=== PATIENT | female | born 1940 | race Caucasian/White ===

== ENCOUNTER 2023-01-05 01:51 | Inpatient (IN) | payer MEDICARE, BC ==
[~2023-01-05] VITALS: Ht 165.1 cm; Wt 76.2 kg
[2023-01-05] MEDS ORDERED: ACETAMINOPHEN 325 MG TABLET PO PRN (04:30)
[2023-01-05] MEDS ORDERED: MAGNESIUM HYDROXIDE 30 ML UDC PO PRN (04:30)
[2023-01-05] MEDS ORDERED: BLOOD SUGAR DIAGNOSTIC 1 EACH STRIP IN ONE (04:30)
[2023-01-05] MEDS ORDERED: MAG HYDROX/AL HYDROX/SIMETH 30 ML UDC PO PRN (04:30)
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
--- NOTE | 2023-01-05 06:00 | NUR ---
RN note: Patient refused MRSA swab;offered 3x.Will endorse to next shift to try again.
--- NOTE | 2023-01-05 06:02 | NUR ---
RN note: Unable to get a hold of [facility] at [phone] to obtain the list of Patients medication;vaccination record and all other medical record.Will endorse to next shift for followup.
[2023-01-05] MEDS ORDERED: MELA5TAB PO (06:31)
[2023-01-05] MEDS ORDERED: QUET100T PO (06:31)
[2023-01-05] MEDS ORDERED: CHLO25TA2 PO (06:31)
[2023-01-05] MEDS ORDERED: FLUT1DIS IH (06:31)
[2023-01-05] MEDS ORDERED: LISI10TA29 PO (06:31)
[2023-01-05] MEDS ORDERED: DOCU-141 PO (06:31)
[2023-01-05] MEDS ORDERED: CHOL400T11 PO (06:31)
[2023-01-05] MEDS ORDERED: RISP0.5T5 PO (06:31)
[2023-01-05] MEDS ORDERED: ALBU18HF2 INH (06:31)
[2023-01-05] MEDS ORDERED: POLY17PO4 PO (06:31)
[2023-01-05] MEDS ORDERED: DONE10TA44 MT (06:31)
[2023-01-05 06:39] VITALS: BP 156/76
--- NOTE | 2023-01-05 06:45 | NUR ---
RN note: LAVELL Ya ,notified to reconcile home medication.
[2023-01-05 08:00] VITALS: BP 132/84
[2023-01-05] MEDS ORDERED: FLUTICASONE/SALMETEROL 1 DISK IH SCH (09:00)
[2023-01-05] MEDS ORDERED: Medication Not On Formulary EA (Chlorthalidone 25 MG) MT SCH (09:00)
[2023-01-05] MEDS ORDERED: POLYETHYLENE GLYCOL 3350 17 GM POWD.PACK PO SCH (09:00)
[2023-01-05] MEDS ORDERED: ALBUTEROL FS 2.5 MG/3 ML VIAL.NEB NEB PRN (09:00)
[2023-01-05] MEDS: DOCUSATE SODIUM 100 MG CAPSULE PO SCH (09:09)
[2023-01-05] MEDS: LISINOPRIL (10MG) 10 MG TABLET PO SCH (09:10)
[2023-01-05 09:39] LABS: CREATININE 1.4 mg/dL (0.6-1.3)
[2023-01-05 09:43] LABS: CHOLESTEROL 232 mg/dL (<200); HDL CHOLESTEROL 96 mg/dL (40-60); LDL 131 mg/dL (0-99); TRIGLYCERIDES 58 mg/dL (30-150)
--- NOTE | 2023-01-05 09:57 | NUR ---
AMANDA Initial Discharge Plan: Per records, pt resides at a [facility] located at [address] [place] [address]; . AMANDA contacted facility and spoke with Thomas ([phone]) from admissions who stated that they would need to re-assess the pt to see if pt is welcomed back. He stated to reach out to [facility] to do the re-assessment. AMANDA will contact pt's son Chace ([phone]) to gather further collateral and discuss treatment/discharge plan. AMANDA will work with the MD, family, and pt to help coordinate appropriate discharge. Addendum: 01/12/23 at 1546 by AMANDA HOFFMAN Correct address: Per records, pt resides at a [facility] located at [address] [place] [id number].
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
--- NOTE | 2023-01-05 10:05 | NUR ---
Treatment Plan: Pt refused to sign treatment plan and was unable to comprehend.
--- NOTE | 2023-01-05 11:31 | NUR ---
AMANDA Family Contact: SW contacted pt's son Chace ([phone]) and left a detailed voicemail of pt's admission. SW requested to discuss about treatment/discharge plan.
--- NOTE | 2023-01-05 12:07 | NUR ---
AMANDA Family Contact: AMANDA contacted pt's son Chace ([phone]) and discussed treatment/discharge plan. Chace stated that he is the DPOA and will send the document. He stated that he would want pt back to [facility] and to speak with Bambi ([phone]) upon dc. Son reported that she has been residing at the memory care unit for two years. She shared that she has been diagnosed with Alzheimers 5 years ago. He shared that this is her first episode. AMANDA shared information to Dr. Menjivar.
[2023-01-05] MEDS: LORAZEPAM 0.5 MG TABLET PO PRN (12:40)
--- NOTE | 2023-01-05 12:42 | NUR ---
RN-NOTES NOTED PATIENT VERY ANXIOUS,BANGING HER TABLE WITH BOTH HANDS REDIRECTED AND ATIVAN 0.5MG P.O GIVEN PRN ORDER. WILL CONT. MONITORING FOR SAFETY AND BEHAVIOR.
--- NOTE | 2023-01-05 12:55 | NUR ---
RN-NOTES PATIENT STILL IN THE DAY ROOM UP IN THE TANIA CHAIR, CALM,NO ACUTE DISTRESS NOTED.
[2023-01-05] MEDS: BUDESONIDE RESPULE INH 0.5 MG/2 ML AMPUL.NEB NEB SCH (15:00)
[2023-01-05 16:00] VITALS: BP 129/61
[2023-01-05] MEDS: MEMANTINE HCL 5 MG TABLET PO SCH (16:21)
--- NOTE | 2023-01-05 17:09 | NUR ---
RN-NOTES PATIENT IN THE DAY ROOM UP IN THE TANIA CHAIR,GUARDED, A/O X1 NO ACUTE DISTRESS NOTED.COMPLIANT WITH MEDICATIONS.NOTED PATIENT WITH AGITATION ,BANGING TABLES WITH BOTH HANDS. NEEDS FREQUENT REDIRECTION AND ORIENTATION.PATIENT NEEDS MODERATE ASSIST IN AMBULATION AND ADL'S. ALL NEEDS ATTENDED AND ANTICIPATED. WILL ENDORSE TO INCOMING NURSE FOR CONTINUITY OF CARE.
[2023-01-05 20:19] VITALS: BP 123/70
[2023-01-05] MEDS: DIVALPROEX SODIUM 250 MG TABLET.DR PO SCH (21:14)
[2023-01-05] MEDS: QUETIAPINE FUMARATE 25 MG TABLET PO SCH (21:14)
[2023-01-05] MEDS: ZOLPIDEM TARTRATE 5 MG TABLET PO PRN (21:17)
--- NOTE | 2023-01-05 21:27 | NUR ---
Pt c/o insomnia. Least restrictive measures ineffective. Ambien 5 mg po prn given as ordered. Will continue to monitor.
[2023-01-05] MEDS ORDERED: Medication Not On Formulary EA (Melatonin 5 MG) PO SCH (22:00)
--- NOTE | 2023-01-05 22:30 | NUR ---
Post 1 hr Ambien effective. Pt asleep in bed easy to arouse. Bed at low position and bed alarm on. Frequent visual check done for safety. Will continue to monitor. Will endorse to next shift.
[2023-01-05] MEDS: ALBUTEROL FS 2.5 MG/3 ML VIAL.NEB NEB SCH (22:43)
[2023-01-06] MEDS: ALBUTEROL FS 2.5 MG/3 ML VIAL.NEB NEB SCH ×4 (02:39→20:41)
[2023-01-06] MEDS: BUDESONIDE RESPULE INH 0.5 MG/2 ML AMPUL.NEB NEB SCH ×2 (07:05→14:53)
[2023-01-06 08:00] VITALS: BP 153/52
--- NOTE | 2023-01-06 08:25 | NUR ---
PATIENT WERE DEEP ASLEEP SO NO TX GIVEN. AEROGRAPHER AND RN NOTIFIED Addendum: 01/06/23 at 0826 by JAVIER GARNICA RT Amended: Links added.
[2023-01-06] MEDS: DONEPEZIL 5 MG TABLET PO SCH (09:47)
[2023-01-06] MEDS: MEMANTINE HCL 5 MG TABLET PO SCH ×2 (09:47→17:33)
[2023-01-06] MEDS: DOCUSATE SODIUM 100 MG CAPSULE PO SCH (09:47)
[2023-01-06] MEDS: DIVALPROEX SODIUM 250 MG TABLET.DR PO SCH ×2 (09:47→20:54)
[2023-01-06] MEDS: LISINOPRIL (10MG) 10 MG TABLET PO SCH (09:48)
[2023-01-06] MEDS ORDERED: LORA-259 PO (11:18)
[2023-01-06] MEDS ORDERED: BENZ200C53 PO (11:18)
[2023-01-06] MEDS ORDERED: LOPE2TAB25 PO (11:18)
[2023-01-06] MEDS ORDERED: GUAI200T5 PO (11:18)
[2023-01-06] MEDS ORDERED: QUET25TA PO (11:18)
[2023-01-06] MEDS ORDERED: CHOL100043 PO (11:18)
[2023-01-06] MEDS ORDERED: ALBU18HF2 IH (11:18)
[2023-01-06] MEDS ORDERED: RISP0.2515 PO (11:18)
[2023-01-06] MEDS ORDERED: ACET-868 PO (11:18)
--- NOTE | 2023-01-06 14:52 | NUR ---
PATIENT DIDN'T FINISH THE TX. PATIENT SAID TO REMOVE IT AND ALSO REFUSED THE SECOND TX. Addendum: 01/06/23 at 1453 by JAVIER GARNICA RT Amended: Links added.
[2023-01-06] MEDS: LORAZEPAM 0.5 MG TABLET PO PRN (15:17)
--- NOTE | 2023-01-06 15:20 | NUR ---
RN-NOTES NOTED PATIENT SCREAMING AND YELLING VERY ANXIOUS. ATIVAN 0.5MG P.O GIVEN PRN ORDER. WILL CONT. MONITORING FOR SAFETY AND BEHAVIOR.
--- NOTE | 2023-01-06 15:41 | NUR ---
DPOA: Pt's son Chace ([phone]) send DPOA document. SW placed it in the chart.
[2023-01-06 16:00] VITALS: BP 140/70
--- NOTE | 2023-01-06 16:20 | NUR ---
RN-NOTES PATIENT STILL IN THE DAY ROOM UP IN THE TANIA CHAIR, CALM,NO ACUTE DISTRESS NOTED.
--- NOTE | 2023-01-06 19:20 | NUR ---
RN-NOTES DR. DUPONT GAVE A VERBAL ORDER OF PATIENT'S SON SARBJIT CAN VISIT OUTSIDE THE VISITING HOUR.NOTED AND CARRIED OUT.
[2023-01-06 20:00] VITALS: BP 146/58
--- NOTE | 2023-01-06 20:14 | NUR ---
RN NOTES: RECEIVED PATIENT SITTING UP IN TANIA CHAIR, A/OX1. NO S/SX OF ACUTE DISTRESS NOTED. PATIENT IS ,CONFUSED, FORGETFUL ANXIOUS, EASILY AGITATED , UNCOOPERTIVE, PARANOID , GUARDED NON REDIRECTABLE,NEEDS FREQUENTLY REDIRECTIONS, REFUSED GO BACK TO BED , HIGH FALL RISKS ,ENCOURAGED TO VERBALIZED ANY FEELING OR CONCERN ,SAFETY PRECAUTIONS MAINTAINED. WILL CONTINUE TO MONITOR Q15MIN ROUNDS FOR SAFETY.
[2023-01-06] MEDS: QUETIAPINE FUMARATE 25 MG TABLET PO SCH (21:52)
[2023-01-07] MEDS: ALBUTEROL FS 2.5 MG/3 ML VIAL.NEB NEB SCH ×4 (01:03→19:30)
[2023-01-07] MEDS: BUDESONIDE RESPULE INH 0.5 MG/2 ML AMPUL.NEB NEB SCH ×2 (07:05→15:00)
[2023-01-07] MEDS ORDERED: Z GUARD REMEDY 4 OZ OINT TP PRN (07:30)
[2023-01-07 08:00] VITALS: BP 130/68
--- NOTE | 2023-01-07 08:58 | NUR ---
RN-NOTES RECEIVED T.O ORDER FROM DR. DUPONT TO CHANGE DEPAKOTE DR 250MG P.O TO DEPAKOTE SPRINKLE 250MG O.O Q 12 HR. NOTED AND CARRIED OUT.
[2023-01-07] MEDS: DOCUSATE SODIUM 100 MG CAPSULE PO SCH (09:03)
[2023-01-07] MEDS: MEMANTINE HCL 5 MG TABLET PO SCH ×2 (09:03→16:07)
[2023-01-07] MEDS: DIVALPROEX SODIUM 125 MG CAP.SPRINK PO SCH ×2 (09:03→21:47)
[2023-01-07] MEDS: DONEPEZIL 5 MG TABLET PO SCH (09:04)
[2023-01-07] MEDS: LISINOPRIL (10MG) 10 MG TABLET PO SCH (09:04)
[2023-01-07] MEDS: LORAZEPAM 0.5 MG TABLET PO PRN (14:04)
--- NOTE | 2023-01-07 14:04 | NUR ---
RN-NOTES NOTED PATIENT VERY ANXIOUS,BANGING TABLE WITH BOTH HANDS REDIRECTED AND ATIVAN 0.5MG P.O GIVEN PRN ORDER. WILL CONT. MONITORING FOR SAFETY AND BEHAVIOR.
[2023-01-07 16:00] VITALS: BP 159/76
[2023-01-07 17:44] LABS: CALCIUM, SERUM 9.2 mg/dL (8.5-10.1); CARBON DIOXIDE 28 mmol/L (21-32); CHLORIDE 108 mmol/L (98-107); CREATININE 1.2 mg/dL (0.6-1.3); GLUCOSE 108 mg/dL (74-106); POTASSIUM 3.6 mmol/L (3.5-5.1); SODIUM SERUM 145 mmol/L (136-145); UREA NITROGEN, BLOOD 47 mg/dL (7-18)
--- NOTE | 2023-01-07 19:30 | NUR ---
GPS RN NOTE, RECEIVED PATIENT AWAKE AND IN BED, NO S/S OR COMPLAINTS OF PAIN AT THIS TIME. PATIENT IS DISPLAYING NO S/S OF APPARENT DISTRESS AT THIS TIME. PATIENT BREATHING IS UNLABORED WITH EQUAL RISE AND FALL OF THE CHEST. PATIENT IS ALERT AND ORIENTED X 1 ON ROOM AIR WITH A SPO2 99%. PATIENT IS COMPLIANT WITH MEDICATIONS, CONFUSED, PARANOID, ANXIOUS AT TIMES, AND COOPERATIVE. PATIENT DENIES SUICIDAL AND HOMICIDAL IDEATIONS AT THIS TIME. PATIENT ASSISTED WITH TURNING AND REPOSITIONING Q2HR AND PRN FOR COMFORT AND CIRCULATION. PATIENT HAS NO NEEDS AT THIS TIME. PATIENT EDUCATED ON THE USE OF THE CALL IBRAHIM. PATIENT BED SIDE RAILS UP X 2 FOR SAFETY. PATIENT BED IS LOCKED, LOW, WITH BED ALARM ON. WILL CONTINUE TO MONITOR THIS PATIENT Q15 MINUTES WITH THE HELP OF STAFF TO MAINTAIN SAFETY.
[2023-01-07 20:18] VITALS: BP 159/87
[2023-01-07 21:31] LABS: BILIRUBIN,URINE NEGATIVE (NEGATIVE); COLOR,URINE YELLOW (YELLOW); LEUKOCYTE ESTERASE ,URINE NEGATIVE (NEGATIVE); NITRITE, URINE NEGATIVE (NEGATIVE); PROTEIN,URINE NEGATIVE (NEGATIVE); UGLUCOSE NEGATIVE (NEGATIVE); UROBILINOGEN,URINE 0.2 EU/dL (0.2)
[2023-01-07] MEDS: QUETIAPINE FUMARATE 25 MG TABLET PO SCH (21:47)
[2023-01-07 22:23] LABS: RBC,URINE NONE SEEN /HPF (0-2)
[2023-01-07 22:24] LABS: URINE AMORPHOUS URATE Many /HPF (None Seen); WBC,URINE NONE SEEN /HPF (0-3)
[2023-01-07 22:25] LABS: BACTERIA,URINE Few /HPF (None Seen); SQUAMOUS EPITHELIAL CELL,UR Few /HPF (None Seen)
[2023-01-08] MEDS: ALBUTEROL FS 2.5 MG/3 ML VIAL.NEB NEB SCH ×4 (01:08→19:30)
[2023-01-08] MEDS: BUDESONIDE RESPULE INH 0.5 MG/2 ML AMPUL.NEB NEB SCH ×2 (07:05→15:00)
[2023-01-08 08:00] VITALS: BP 159/90
[2023-01-08] MEDS: LISINOPRIL (10MG) 10 MG TABLET PO SCH (08:20)
[2023-01-08] MEDS: DIVALPROEX SODIUM 125 MG CAP.SPRINK PO SCH ×2 (08:21→21:16)
[2023-01-08] MEDS: DOCUSATE SODIUM 100 MG CAPSULE PO SCH (08:21)
[2023-01-08] MEDS: MEMANTINE HCL 5 MG TABLET PO SCH ×2 (08:21→17:22)
[2023-01-08] MEDS: DONEPEZIL 5 MG TABLET PO SCH (08:21)
[2023-01-08] MEDS: LORAZEPAM 0.5 MG TABLET PO PRN ×2 (09:34→15:47)
--- NOTE | 2023-01-08 09:34 | NUR ---
NURSE NOTE: PT VERY AGITATED, ATIVAN PO ADMINISTERED ORDERED. PT MARCOS WELL. WILL CONT TO MONITOR.
--- NOTE | 2023-01-08 10:30 | NUR ---
NURSE NOTE: PT CALM AT THIS TIME. ATIVAN EFFECTIVE, WILL CONT TO MONITOR.
--- NOTE | 2023-01-08 15:45 | NUR ---
NURSE NOTE: PT VERY AGITATED, ATIVAN PO ADMINISTERED ORDERED. PT MARCOS WELL. WILL CONT TO MONITOR.
[2023-01-08 16:00] VITALS: BP 156/102
--- NOTE | 2023-01-08 16:45 | NUR ---
NURSE NOTE: PT CALM AT THIS TIME. ATIVAN EFFECTIVE, WILL CONT TO MONITOR.
[2023-01-08 16:49] LABS: BASOPHILS % (AUTO) 0.2 % (0.0-2.0); EOSINOPHILS % (AUTO) 0.8 % (0.0-6.0); HEMATOCRIT 40 % (33-45); HEMOGLOBIN 13.2 g/dL (11.5-14.8); LYMPHOCYTES # (AUTO) 1.1 K/uL (0.8-4.8); LYMPHOCYTES % (AUTO) 11.2 % (20.0-44.0); MEAN CORPUSCULAR HGB CONC 33 g/dl (31.0-36.0); MEAN CORPUSCULAR VOLUME 90 fL (82-100); MONOCYTES # (AUTO) 0.9 K/uL (0.1-1.30); MONOCYTES % (AUTO) 9.1 % (2.0-12.0); NEUTROPHILS # (AUTO) 7.4 K/uL (1.8-8.9); NEUTROPHILS % (AUTO) 78.7 % (43.0-81.0); PLATELET COUNT (AUTO) 192 K/uL (150-450); RED BLOOD CELL COUNT(AUTO) 4.41 MIL/uL (4.0-5.2); WHITE BLOOD COUNT (AUTO) 9.5 K/uL (4.3-11.0)
[2023-01-08 16:56] LABS: CALCIUM, SERUM 9.5 mg/dL (8.5-10.1); CARBON DIOXIDE 29 mmol/L (21-32); CHLORIDE 105 mmol/L (98-107); CREATININE 1.3 mg/dL (0.6-1.3); GLUCOSE 152 mg/dL (74-106); POTASSIUM 3.4 mmol/L (3.5-5.1); SODIUM SERUM 144 mmol/L (136-145); UREA NITROGEN, BLOOD 44 mg/dL (7-18)
--- NOTE | 2023-01-08 20:07 | NUR ---
RN NOTES: RECEIVED PATIENT SITTING UP IN TANIA CHAIR, A/OX1. NO S/SX OF ACUTE DISTRESS NOTED. PATIENT IS ,CONFUSED, FORGETFUL ANXIOUS, EASILY AGITATED , UNCOOPERTIVE, PARANOID , GUARDED, LOUD TALKING TO SELF, NON REDIRECTABLE,NEEDS FREQUENTLY REDIRECTIONS, REFUSED GO BACK TO BED , HIGH FALL RISKS ,ENCOURAGED TO VERBALIZED ANY FEELING OR CONCERN ,SAFETY PRECAUTIONS MAINTAINED. WILL CONTINUE TO MONITOR Q15MIN ROUNDS FOR SAFETY.
[2023-01-08 20:33] VITALS: BP 157/83
[2023-01-08] MEDS: QUETIAPINE FUMARATE 25 MG TABLET PO SCH (21:16)
[2023-01-09] MEDS: ALBUTEROL FS 2.5 MG/3 ML VIAL.NEB NEB SCH ×4 (01:24→19:30)
[2023-01-09] MEDS: BUDESONIDE RESPULE INH 0.5 MG/2 ML AMPUL.NEB NEB SCH ×2 (07:05→13:50)
[2023-01-09 08:00] VITALS: BP 147/65
[2023-01-09] MEDS: MEMANTINE HCL 5 MG TABLET PO SCH ×2 (08:30→17:01)
[2023-01-09] MEDS: DOCUSATE SODIUM 100 MG CAPSULE PO SCH (08:30)
[2023-01-09] MEDS: DONEPEZIL 5 MG TABLET PO SCH (08:31)
[2023-01-09] MEDS: DIVALPROEX SODIUM 125 MG CAP.SPRINK PO SCH ×2 (08:31→21:38)
[2023-01-09] MEDS: LISINOPRIL (10MG) 10 MG TABLET PO SCH (08:32)
[2023-01-09] MEDS: LORAZEPAM 0.5 MG TABLET PO PRN ×2 (11:45→17:25)
--- NOTE | 2023-01-09 11:45 | NUR ---
NURSE NOTE: PT AGITATED, HITTING TABLE. ATIVAN PO ADMINISTERED ORDERED. PT MARCOS WELL, WILL CONT TO MONITOR.
--- NOTE | 2023-01-09 12:45 | NUR ---
NURSE NOTE: PT CALM AT THIS TIME, ATIVAN EFFECTIVE. WILL CONT TO MONITOR.
[2023-01-09 16:00] VITALS: BP 154/66
--- NOTE | 2023-01-09 17:25 | NUR ---
NURSE NOTE: PT AGITATED, BANGING ON TABLE. YELLING OUT LOUD. ATIVAN PO ADMINISTERED ORDERED. PT MARCOS WELL. WILL CONT TO MONITOR.
--- NOTE | 2023-01-09 18:08 | NUR ---
NURSE NOTES: PT CALM AT THIS TIME. ATIVAN EFFECTIVE. WILL CONT TO MONITOR.
[2023-01-09 20:46] VITALS: BP 158/87
--- NOTE | 2023-01-09 21:00 | NUR ---
LABORER CHEMICAL PROCESSING NOTES: PATIENT IS CONFUSED AND AGITATED, PATIENT WAS UNCOOPERATIVE AND NOT ABLE TO OBTAINED URINE SAMPLE.
[2023-01-09] MEDS: QUETIAPINE FUMARATE 25 MG TABLET PO SCH (21:38)
[2023-01-09] MEDS: ZOLPIDEM TARTRATE 5 MG TABLET PO PRN (21:50)
--- NOTE | 2023-01-09 21:50 | NUR ---
GLASS PRODUCTS INSPECTOR NOTES: PATIENT AWAKE, AMBIEN 5MG GIVEN FOR INSOMIA PER NURSE CLINICAL ASSESSMENT. WILL CONTINUE TO MONITOR.
[2023-01-10] MEDS: ALBUTEROL FS 2.5 MG/3 ML VIAL.NEB NEB SCH ×4 (01:25→19:30)
[2023-01-10] MEDS: BUDESONIDE RESPULE INH 0.5 MG/2 ML AMPUL.NEB NEB SCH ×2 (07:05→15:00)
[2023-01-10 08:00] VITALS: BP 149/77
[2023-01-10] MEDS: DONEPEZIL 5 MG TABLET PO SCH (08:35)
[2023-01-10] MEDS: MEMANTINE HCL 5 MG TABLET PO SCH ×2 (08:35→16:35)
[2023-01-10] MEDS: DIVALPROEX SODIUM 125 MG CAP.SPRINK PO SCH ×2 (08:35→20:57)
[2023-01-10] MEDS: DOCUSATE SODIUM 100 MG CAPSULE PO SCH (08:37)
[2023-01-10] MEDS: LISINOPRIL (10MG) 10 MG TABLET PO SCH (08:37)
--- NOTE | 2023-01-10 10:02 | NUR ---
RN-CO: NOTIFIED DR FITZPATRICK REGARDING PT'S POOR PO INTAKE. ORDERED DIET CONSULT.NOTED AND CARRIED OUT.
--- NOTE | 2023-01-10 11:41 | NUR ---
Family Contact: SW contacted pt's son Chace ([phone]) and left a detailed voicemail that her facility will re-assess pt on 01/12.
[2023-01-10 11:45] LABS: BILIRUBIN,URINE NEGATIVE (NEGATIVE); COLOR,URINE YELLOW (YELLOW); LEUKOCYTE ESTERASE ,URINE NEGATIVE (NEGATIVE); NITRITE, URINE NEGATIVE (NEGATIVE); PROTEIN,URINE TRACE mg/dl (NEGATIVE); UGLUCOSE NEGATIVE (NEGATIVE)
[2023-01-10] MEDS: LORAZEPAM 0.5 MG TABLET PO PRN ×2 (11:45→16:49)
--- NOTE | 2023-01-10 11:45 | NUR ---
NURSE NOTE: PT AGITATED AT THIS TIME. BANGING ON TABLE. YELLING OUT LOUD. ATIVAN PO ADMINISTERED ORDERED. PT MARCOS WELL. WILL CONT TO MONITOR.
[2023-01-10 12:03] LABS: BACTERIA,URINE None seen /HPF (None Seen); RBC,URINE 0-2 /HPF (0-2); SQUAMOUS EPITHELIAL CELL,UR Rare /HPF (None Seen); WBC,URINE 0-2 /HPF (0-3)
--- NOTE | 2023-01-10 12:45 | NUR ---
NURSE NOTE: PT CALM AT THIS TIME. ATIVAN EFFECTIVE AT THIS TIME. WILL CONT TO MONITOR.
[2023-01-10] MEDS: ENSURE ENLIVE 237 ML LIQUID (VANILLA) PO SCH ×2 (13:05→16:36)
[2023-01-10 16:00] VITALS: BP 147/83
--- NOTE | 2023-01-10 16:50 | NUR ---
NURSE NOTES: VERY AGITATED, YELLING LOUDLY AND BANGING ON TABLE. ATIVAN PO ADMINISTERED ORDERED. PT MARCOS WELL. WILL CONT TO MONITOR.
--- NOTE | 2023-01-10 17:50 | NUR ---
NURSE NOTE: PT STILL AGITATED AT THIS TIME. TRYING TO USE DISTRACTION TACTICS. WILL CONT TO MONITOR.
[2023-01-10 20:27] VITALS: BP 128/71
[2023-01-10] MEDS: QUETIAPINE FUMARATE 25 MG TABLET PO SCH (21:00)
[2023-01-10] MEDS: ZOLPIDEM TARTRATE 5 MG TABLET PO PRN (22:04)
--- NOTE | 2023-01-10 22:04 | NUR ---
NURSE NOTE: PT UNABLE TO SLEEP AT THIS TIME. AMBIEN ADMIN ORDERED. PT MARCOS WELL. WILL CONT TO MONITOR.
--- NOTE | 2023-01-10 23:04 | NUR ---
NURSE NOTES: PT SLEEPING AT THIS TIME. ROBINIEN EFFECTIVE AT THIS TIME. WILL CONT TO MONITOR.
[2023-01-11] MEDS: ALBUTEROL FS 2.5 MG/3 ML VIAL.NEB NEB SCH ×4 (01:30→19:25)
[2023-01-11] MEDS: BUDESONIDE RESPULE INH 0.5 MG/2 ML AMPUL.NEB NEB SCH ×2 (07:05→15:00)
[2023-01-11 08:00] VITALS: BP 135/59
[2023-01-11] MEDS: DIVALPROEX SODIUM 125 MG CAP.SPRINK PO SCH ×2 (08:52→20:56)
[2023-01-11] MEDS: DOCUSATE SODIUM 100 MG CAPSULE PO SCH (08:52)
[2023-01-11] MEDS: DONEPEZIL 5 MG TABLET PO SCH (08:52)
[2023-01-11] MEDS: MEMANTINE HCL 5 MG TABLET PO SCH ×2 (08:52→17:28)
[2023-01-11] MEDS: ENSURE ENLIVE 237 ML LIQUID (VANILLA) PO SCH ×3 (08:53→17:28)
[2023-01-11] MEDS: LISINOPRIL (10MG) 10 MG TABLET PO SCH (08:53)
[2023-01-11] MEDS: LORAZEPAM 0.5 MG TABLET PO PRN ×2 (10:44→17:28)
--- NOTE | 2023-01-11 10:45 | NUR ---
RN- NOTES LORAZEPAM ADMINISTERED DUE TO INCREASED AGITATION, YELLING, AND ATTEMPTING TO GRAB STAFF.
--- NOTE | 2023-01-11 12:08 | NUR ---
AMANDA Family Contact: AMANDA contacted pt's sister Anni ([phone]) Addendum: 01/11/23 at 1208 by AMANDA HOFFMAN disregard wrong note
--- NOTE | 2023-01-11 12:08 | NUR ---
Court Hearing: Patient's court hearing for 2330 was today and it was upheld for GD.
--- NOTE | 2023-01-11 12:08 | NUR ---
Court Notification: SW contacted pt's son Chace ([phone]) of 0251 hearing.
--- NOTE | 2023-01-11 12:09 | NUR ---
Facility Contact: AMANDA spoke with Natan mcneal from [facility] ([phone]) who stated that he will assess pt tomorrow 01/12 at 5PM.
[2023-01-11 16:00] VITALS: BP 165/91
--- NOTE | 2023-01-11 17:28 | NUR ---
RN- NOTES LORAZEPAM ADMINISTERED DUE TO INCREASED AGITATION, YELLING, AND ATTEMPTING TO GRAB STAFF.
--- NOTE | 2023-01-11 19:05 | NUR ---
RN- CLOSING NOTES PATIENT IS SAT UP IN THE TANIA CHAIR, BREATHING EVEN AND NON LABORED WITH NO S/S OF DISTRESS. PATIENT IS CONFUSED, GUARDED, NEEDY, HYPERVERBAL, AGGRESSIVE, AND ATTEMPTING TO GRAB STAFF AND OTHER PATIENTS. PATIENT IS TALKING WITH VISITOR BUT REQUIRES FREQUENT REDIRECTION. DENIES SI/HI BUT IS CONFUSED AT THIS TIME. WILL CONTINUE TO MONITOR Q 15 MINUTES FOR SAFETY AND BEHAVIOR.
[2023-01-11 20:13] VITALS: BP 156/85
[2023-01-11] MEDS: QUETIAPINE FUMARATE 25 MG TABLET PO SCH (21:00)
[2023-01-11] MEDS: ZOLPIDEM TARTRATE 5 MG TABLET PO PRN (21:32)
[2023-01-12] MEDS: ALBUTEROL FS 2.5 MG/3 ML VIAL.NEB NEB SCH ×4 (01:30→19:30)
[2023-01-12] MEDS: BUDESONIDE RESPULE INH 0.5 MG/2 ML AMPUL.NEB NEB SCH ×2 (07:05→15:00)
[2023-01-12 08:00] VITALS: BP 143/82
[2023-01-12] MEDS: DOCUSATE SODIUM 100 MG CAPSULE PO SCH ×2 (08:29→08:41)
[2023-01-12] MEDS: LISINOPRIL (10MG) 10 MG TABLET PO SCH (08:29)
[2023-01-12] MEDS: DONEPEZIL 5 MG TABLET PO SCH (08:29)
[2023-01-12] MEDS: MEMANTINE HCL 5 MG TABLET PO SCH ×2 (08:29→17:00)
[2023-01-12] MEDS: ENSURE ENLIVE 237 ML LIQUID (VANILLA) PO SCH ×3 (08:30→17:00)
[2023-01-12] MEDS: DIVALPROEX SODIUM 125 MG CAP.SPRINK PO SCH ×2 (08:30→21:04)
[2023-01-12] MEDS: LORAZEPAM 0.5 MG TABLET PO PRN ×2 (12:28→19:47)
--- NOTE | 2023-01-12 12:29 | NUR ---
RN-NOTES ATIVAN 0.5 MG ADMINISTERED DUE TO PT INCREASED AGITATION , IRRITABILITY AND YELLING.
[2023-01-12 16:00] VITALS: BP 141/84
--- NOTE | 2023-01-12 16:00 | NUR ---
[employer] Transportation: AMANDA contacted [employer] and spoke with Abhi ([phone]) who coordinated transportation for 01/14 at 10-10:30AM. Abhi quoted $234.00. AMANDA notified son Chace ([phone]) to make payment.
--- NOTE | 2023-01-12 19:47 | NUR ---
RN Notes Administered ativan because patient is agitated.
[2023-01-12 20:15] VITALS: BP 150/54
[2023-01-12] MEDS: QUETIAPINE FUMARATE 25 MG TABLET PO SCH (21:04)
[2023-01-12] MEDS: ZOLPIDEM TARTRATE 5 MG TABLET PO PRN (22:21)
--- NOTE | 2023-01-12 22:21 | NUR ---
RN Notes Administered ambien for sleep per clinical assessment.
[2023-01-13] MEDS: ALBUTEROL FS 2.5 MG/3 ML VIAL.NEB NEB SCH ×4 (01:30→19:30)
--- NOTE | 2023-01-13 06:40 | NUR ---
RN Notes Patient refused labs. Charge nurse, Dilma, made aware.
[2023-01-13] MEDS: BUDESONIDE RESPULE INH 0.5 MG/2 ML AMPUL.NEB NEB SCH ×2 (07:05→14:07)
[2023-01-13 08:00] VITALS: BP 138/90
[2023-01-13] MEDS: DONEPEZIL 5 MG TABLET PO SCH (09:01)
[2023-01-13] MEDS: DIVALPROEX SODIUM 125 MG CAP.SPRINK PO SCH ×2 (09:01→20:27)
[2023-01-13] MEDS: DOCUSATE SODIUM 100 MG CAPSULE PO SCH (09:01)
[2023-01-13] MEDS: ENSURE ENLIVE 237 ML LIQUID (VANILLA) PO SCH ×3 (09:01→16:21)
[2023-01-13] MEDS: MEMANTINE HCL 5 MG TABLET PO SCH ×2 (09:01→16:17)
[2023-01-13] MEDS: LISINOPRIL (10MG) 10 MG TABLET PO SCH (09:02)
[2023-01-13 16:00] VITALS: BP 135/72
[2023-01-13] MEDS: LORAZEPAM 0.5 MG TABLET PO PRN (16:17)
--- NOTE | 2023-01-13 16:20 | NUR ---
RN-NOTES NOTED PATIENT VERY ANXIOUS,BANGING HER TABLE WITH BOTH HANDS,SCREAMING AND YELLING. REDIRECTED AND ATIVAN 0.5MG P.O GIVEN PRN ORDER. WILL CONT. MONITORING FOR SAFETY AND BEHAVIOR.
--- NOTE | 2023-01-13 17:59 | NUR ---
RN-NOTES PATIENT IN THE DAY ROOM UP IN THE TANIA CHAIR,GUARDED, A/O X1 NO ACUTE DISTRESS NOTED.COMPLIANT WITH MEDICATIONS.NOTED PATIENT WITH AGITATION ,BANGING TABLES WITH BOTH HANDS. NEEDS FREQUENT REDIRECTION AND ORIENTATION.PATIENT NEEDS MODERATE ASSIST IN AMBULATION AND ADL'S. [facility] RENDERED. ALL NEEDS ATTENDED AND ANTICIPATED. WILL ENDORSE TO INCOMING NURSE FOR CONTINUITY OF CARE.
--- NOTE | 2023-01-13 19:27 | NUR ---
RN NOTES :RECEIVED PATIENT SITTING UP IN TANIA CHAIR, A/OX1. NO S/SX OF ACUTE DISTRESS NOTED. PATIENT IS ,CONFUSED, FORGETFUL ANXIOUS, EASILY AGITATED , UNCOOPERTIVE, PARANOID , GUARDED, LOUD TALKING TO SELF, NON REDIRECTABLE,NEEDS FREQUENTLY REDIRECTIONS, REFUSED GO BACK TO BED , HIGH FALL RISKS ,ENCOURAGED TO VERBALIZED ANY FEELING OR CONCERN ,SAFETY PRECAUTIONS MAINTAINED. WILL CONTINUE TO MONITOR Q15MIN ROUNDS FOR SAFETY.
[2023-01-13 20:00] VITALS: BP 116/74
[2023-01-13] MEDS: QUETIAPINE FUMARATE 25 MG TABLET PO SCH (21:06)
[2023-01-14] MEDS: ALBUTEROL FS 2.5 MG/3 ML VIAL.NEB NEB SCH ×2 (00:46→07:29)
[2023-01-14] MEDS: BUDESONIDE RESPULE INH 0.5 MG/2 ML AMPUL.NEB NEB SCH (07:05)
[2023-01-14 08:00] VITALS: BP 153/77
--- NOTE | 2023-01-14 08:04 | NUR ---
SW Discharge Note: Patient will be discharged to [facility] located at [address] [place] [address]; ([phone]). [employer] transportation has been set and pt will be picked up between 10-10:30AM. Patients son Chace ([phone]) is aware and agreeable. Natan/Bambi from [facility] ([phone]) is aware. Pt is alert and oriented x1. Patient appears happy to be going to her assisted living. Patient denies suicidal or homicidal ideation. Patient denies visual/auditory hallucinations. Patient will continue to follow-up with Elementary Special Education Teacher, Dr. Tricia Cruz at the facility [address] [place] [address]; ([phone]) who will monitor and provide psychotropic medications. Patient presents with euthymic and congruent affect.
[2023-01-14] MEDS: DOCUSATE SODIUM 100 MG CAPSULE PO SCH (09:26)
[2023-01-14] MEDS: DONEPEZIL 5 MG TABLET PO SCH (09:26)
[2023-01-14] MEDS: DIVALPROEX SODIUM 125 MG CAP.SPRINK PO SCH (09:26)
[2023-01-14] MEDS: MEMANTINE HCL 5 MG TABLET PO SCH (09:26)
[2023-01-14 09:27] VITALS: BP 153/77
[2023-01-14] MEDS: ENSURE ENLIVE 237 ML LIQUID (VANILLA) PO SCH (09:27)
[2023-01-14] MEDS: LISINOPRIL (10MG) 10 MG TABLET PO SCH (09:27)
--- NOTE | 2023-01-14 10:23 | NUR ---
RN-DISCHARGE NOTES PATIENT HAD A DISCHARGE ORDER FROM DR DUPONT ( PSYCHIATRIST) DR. CASTRO ( FLEECER) MEDICALLY CLEARED PATIENT FOR DISCHARGE. PATIENT A/OX1 ,PATIENT NEEDS ASSIST WITH AMBULATION . PATIENT LEFT THE UNIT IN STABLE CONDITION VITAL SIGNS BP 130/68,P70,TEMP.98 AND O2SAT 98% RA. PATIENT DID NOT VERBALIZE SI/HI,DENIES VISUAL/AUDITORY HALLUCINATIONS AT THE TIME OF DISCHARGE. PATIENT'S SON SARBJIT ([phone] ) MADE AWARE OF THE DISCHARGE. ALL DISCHARGE PAPERS INCLUDING RX AND BELONGINGS WAS GIVEN BACK TO THE PATIENT AND WAS ENDORSE TO THE [facility] SURVEYING.
== END 2023-01-14 10:20 | DRG 885 ==
LOC: GPS 04:06
PROVIDERS: ADMIT Psychiatry & Neurology Psychiatry; ATTEND Nurse Practitioner Acute Care
DX: F29 Unspecified psychosis not due to a substance or known physiological condition (principal); F03.92 Unspecified dementia, unspecified severity, with psychotic disturbance; I10 Essential (primary) hypertension; J44.9 Chronic obstructive pulmonary disease, unspecified; M19.90 Unspecified osteoarthritis, unspecified site; E87.6 Hypokalemia; Z91.81 History of falling; R79.89 Other specified abnormal findings of blood chemistry
CPT/HCPCS: 36415; 80048-TC; 80061-TC; 81001; 82565-TC; 85025-TC; 87086-TC; 94799-TC; 97116-TC; 97530-TC